=== PATIENT | male | born 1970 | race Caucasian/White ===

== ENCOUNTER 2018-05-19 10:11 | Inpatient (IN) | payer SELFPAY ==
[~2018-05-19] VITALS: Ht 188 cm; Wt 172.6 kg
[2018-05-19 11:06] LABS: Basophils # (auto) 0 uL; Basophils % (auto) 0.3 % (0.0-2.0); Eosinophils # (auto) 0 uL; Eosinophils % (auto) 0.2 % (0.0-7.0); Hematocrit 46.4 % (41.0-53.0); Lymphocytes # (auto) 0.8 uL; Lymphocytes % (auto) 4.8 % (10.0-50.0); Mean Corpuscular Hemoglobin 27.4 pg (28.0-32.0); Mean Corpuscular Hgb Conc. 32.4 g/dL (32.0-36.0); Mean Corpuscular Volume 84.5 fL (80.0-100.0); Monocytes # (auto) 0.7 uL; Neutrophils # (auto) 15.5 uL; Neutrophils % (auto) 90.7 % (37.0-80.0); Platelet Count (auto) 281 10^3/uL (140-450); Red Blood Cells 5.49 10^6/uL (4.5-5.90); Red Cell Distribution Width 15.2 % (11.8-14.3); White Blood Cell 17.1 10^3/uL (4.4-10.8)
[2018-05-19] MEDS ORDERED: SODIUM CHLORIDE 0.9% 1,000 ML IV ONE (11:16)
[2018-05-19 11:28] LABS: Alanine Aminotransferase 24 U/L (16-61); Albumin 3.8 g/dL (3.4-5.0); Alkaline Phosphatase 86 U/L (45-117); Anion Gap 6 (5-15); Aspartate Aminotransferase 10 U/L (15-37); BUN/Creatinine Ratio 13.3; Bilirubin, Total 0.7 mg/dL (0.2-1.0); Blood Urea Nitrogen 14 mg/dL (7-18); Calcium 8.5 mg/dL (8.5-10.1); Carbon Dioxide 25 mmol/L (21-32); Chloride 104 mmol/L (98-107); GFR African American 97 mL/min; GFR Non-African American 80 mL/min; Glucose 171 mg/dL (74-106); Potassium 3.9 mmol/L (3.5-5.1); Sodium 135 mmol/L (136-145)
[2018-05-19] MEDS ORDERED: CLINDAMYCIN 900MG IV 50 ML IV ONE (11:30)
[2018-05-19] MEDS ORDERED: PIPERACILLIN-TAZOB 3.375GM 100 ML IV ONE (11:30)
[2018-05-19 11:36] LABS: Urine Bacteria NONE SEEN /hpf (None Seen); Urine Blood Negative /uL (Negative); Urine WBC 1 /hpf (0 - 3)
[2018-05-19] MEDS ORDERED: DEXTROSE (50%) 50ML SYRG IV PRN (13:45)
[2018-05-19] MEDS ORDERED: HYDROcodone-ACET 5/325MG TAB PO PRN (13:45)
[2018-05-19] MEDS ORDERED: LORazepam 0.5 MG TAB PO PRN (13:45)
[2018-05-19] MEDS ORDERED: LACTULOSE 20Gm/30ML SOLN PO PRN (13:45)
[2018-05-19] MEDS ORDERED: MORPHINE SULF INJ 2 MG/ML SYRINGE 1ML IV PRN (13:45)
[2018-05-19] MEDS ORDERED: TEMAZEPAM 15 MG CAP PO PRN (13:45)
[2018-05-19] MEDS ORDERED: PROMETHAZINE HCL 25 MG/ML 1ML IV PRN (13:45)
[2018-05-19] MEDS ORDERED: NITROGLYCERIN 0.4 MG SL TAB SL PRN (13:45)
[2018-05-19] MEDS ORDERED: MORPHINE SULFATE 4 MG/ML SYR/VIAL IV PRN (13:45)
[2018-05-19] MEDS ORDERED: ACETAMINOPHEN 500 MG TAB PO PRN (13:45)
[2018-05-19] MEDS: CLINDAMYCIN 600MG IV 50 ML IV SCH ×2 (14:00→21:57)
[2018-05-19] MEDS: SODIUM CHLORIDE 0.9% 1,000 ML IV SCH ×2 (14:26→23:36)
[2018-05-19] MEDS ORDERED: FURO40TA PO (16:18)
[2018-05-19] MEDS ORDERED: METO-158 PO (16:18)
[2018-05-19] MEDS ORDERED: LISI30TA36 PO (16:18)
[2018-05-19 17:00] VITALS: BP 120/54
[2018-05-19] MEDS: ACCU-CHEK COMFORT CURVE STRIP VI SCH ×2 (18:00→23:36)
[2018-05-19] MEDS: InsuLIN REG 1unit/0.01ml Soln (100units/ml) SC SCH ×2 (18:00→23:37)
[2018-05-19 22:00] VITALS: BP 130/71
[2018-05-20] MEDS: SODIUM CHLORIDE 0.9% 1,000 ML IV SCH (02:43)
[2018-05-20 05:00] VITALS: BP 107/55
[2018-05-20] MEDS: CLINDAMYCIN 600MG IV 50 ML IV SCH ×3 (05:20→21:48)
[2018-05-20] MEDS: ACCU-CHEK COMFORT CURVE STRIP VI SCH ×2 (05:22→12:00)
[2018-05-20] MEDS: InsuLIN REG 1unit/0.01ml Soln (100units/ml) SC SCH ×2 (05:22→12:00)
[2018-05-20 07:02] LABS: Basophils # (auto) 0.1 uL; Basophils % (auto) 0.6 % (0.0-2.0); Eosinophils # (auto) 0 uL; Eosinophils % (auto) 0.4 % (0.0-7.0); Hematocrit 40.1 % (41.0-53.0); Hemoglobin 13.5 g/dL (13.5-17.5); Lymphocytes # (auto) 1.5 uL; Lymphocytes % (auto) 16.5 % (10.0-50.0); Mean Corpuscular Hgb Conc. 33.7 g/dL (32.0-36.0); Monocytes # (auto) 0.7 uL; Monocytes % (auto) 7.8 % (0.0-12.0); Neutrophils # (auto) 6.9 uL; Neutrophils % (auto) 74.7 % (37.0-80.0); Platelet Count (auto) 204 10^3/uL (140-450); Red Blood Cells 4.83 10^6/uL (4.5-5.90); Red Cell Distribution Width 15.3 % (11.8-14.3); White Blood Cell 9.2 10^3/uL (4.4-10.8)
[2018-05-20 07:15] LABS: Albumin 3.1 g/dL (3.4-5.0); Potassium 3.3 mmol/L (3.5-5.1)
[2018-05-20 07:18] LABS: BUN/Creatinine Ratio 14.7
[2018-05-20 07:20] LABS: Bilirubin, Total 0.7 mg/dL (0.2-1.0); Total Protein 6.8 g/dL (6.4-8.2)
[2018-05-20 08:49] VITALS: BP 117/66
[2018-05-20] MEDS: cefTRIAXone 1GM/10ml IVPUSH 10 ML IV SCH (12:05)
[2018-05-20] MEDS: ENOXAPARIN SOD 40 MG/0.4 ML SYRINGE SC SCH (12:05)
[2018-05-20] MEDS ORDERED: FUROSEMIDE 40 MG TAB PO ONE (12:30)
[2018-05-20] MEDS ORDERED: POTASSIUM CHL 20 Meq TABLET PO ONE (12:30)
[2018-05-20] MEDS ORDERED: LISINOPRIL 20 MG TAB PO ONE (12:30)
[2018-05-20] MEDS ORDERED: ENOXAPARIN SOD 40 MG/0.4 ML SYRINGE SC ONE (12:30)
[2018-05-20] MEDS ORDERED: METOPROLOL TARTRATE 50 MG TAB PO ONE (12:30)
[2018-05-20 13:00] VITALS: BP 120/63
[2018-05-20 17:07] VITALS: BP 117/67
[2018-05-20] MEDS: MULTIPLE VITAMIN TAB PO SCH (18:10)
[2018-05-20] MEDS: METOPROLOL TARTRATE 50 MG TAB PO SCH (21:48)
[2018-05-20] MEDS: ASCORBIC ACID 500 MG TAB PO SCH (21:48)
[2018-05-20 22:03] VITALS: BP 128/58
[2018-05-21 05:00] VITALS: BP 116/68
[2018-05-21] MEDS: CLINDAMYCIN 600MG IV 50 ML IV SCH ×3 (05:23→22:49)
[2018-05-21 07:12] LABS: INR 0.97 (0.9-1.15); Partial Thromboplastin Time 27.2 sec (23.78-33.04); Prothrombin Time 10.4 sec (9.27-12.13)
[2018-05-21 07:21] LABS: BUN/Creatinine Ratio 16.4; Calcium 8.3 mg/dL (8.5-10.1); Potassium 3.6 mmol/L (3.5-5.1)
[2018-05-21 09:28] VITALS: BP 113/64
[2018-05-21] MEDS: FUROSEMIDE 40 MG TAB PO SCH (11:27)
[2018-05-21] MEDS: cefTRIAXone 1GM/10ml IVPUSH 10 ML IV SCH (11:27)
[2018-05-21] MEDS: POTASSIUM CHL 20 Meq TABLET PO SCH (11:27)
[2018-05-21] MEDS: METOPROLOL TARTRATE 50 MG TAB PO SCH ×2 (11:28→22:50)
[2018-05-21] MEDS: ASCORBIC ACID 500 MG TAB PO SCH ×2 (11:28→22:50)
[2018-05-21] MEDS: MULTIPLE VITAMIN TAB PO SCH (11:28)
[2018-05-21] MEDS: ENOXAPARIN SOD 40 MG/0.4 ML SYRINGE SC SCH (11:29)
[2018-05-21] MEDS: LISINOPRIL 20 MG TAB PO SCH (11:29)
[2018-05-21 13:00] VITALS: BP 99/39
[2018-05-21 17:06] VITALS: BP 99/68
[2018-05-21 22:00] VITALS: BP 124/58
[2018-05-22 05:00] VITALS: BP 92/49
[2018-05-22] MEDS: CLINDAMYCIN 600MG IV 50 ML IV SCH ×2 (05:58→13:23)
[2018-05-22 07:32] LABS: BUN/Creatinine Ratio 17.2; Calcium 8.5 mg/dL (8.5-10.1); Potassium 3.9 mmol/L (3.5-5.1)
[2018-05-22 09:00] VITALS: BP 121/64
[2018-05-22] MEDS ORDERED: LIDOCAINE 1% HCL (LOCAL ANESTH.) INJ 20ML MDV ID ONE (09:15)
[2018-05-22] MEDS: METOPROLOL TARTRATE 50 MG TAB PO SCH ×2 (10:00→22:14)
[2018-05-22] MEDS ORDERED: MORPHINE SULF INJ 2 MG/ML SYRINGE 1ML IV PRN (10:00)
[2018-05-22] MEDS ORDERED: DAKINS QUARTER STR 0.125% (NaHypochlorite) 473 ML TOPICAL SOL TOP SCH (10:00)
[2018-05-22] MEDS ORDERED: SILVER SULFADIAZINE 1 % TOPICAL CREAM 50GM TOP SCH (10:00)
[2018-05-22] MEDS: ENOXAPARIN SOD 40 MG/0.4 ML SYRINGE SC SCH ×2 (10:00→22:14)
[2018-05-22] MEDS: POTASSIUM CHL 20 Meq TABLET PO SCH (10:17)
[2018-05-22] MEDS: MULTIPLE VITAMIN TAB PO SCH (10:18)
[2018-05-22] MEDS: FUROSEMIDE 40 MG TAB PO SCH (10:18)
[2018-05-22] MEDS: LISINOPRIL 20 MG TAB PO SCH (10:18)
[2018-05-22] MEDS: ASCORBIC ACID 500 MG TAB PO SCH ×2 (10:18→22:14)
[2018-05-22] MEDS: cefTRIAXone 1GM/10ml IVPUSH 10 ML IV SCH (10:30)
[2018-05-22 13:00] VITALS: BP 155/96
[2018-05-22] MEDS ORDERED: HYDROcodone-ACET 5/325MG TAB PO PRN (14:45)
[2018-05-22 17:00] VITALS: BP 105/42
[2018-05-23 05:00] VITALS: BP 106/34
[2018-05-23] MEDS ORDERED: AMPICILLIN INJ 1 GM in SODIUM CHL 0.9% 50 ML IV SCH (06:00)
[2018-05-23 09:00] VITALS: BP 109/80
[2018-05-23] MEDS ORDERED: SILVER SULFADIAZINE 1 % TOPICAL CREAM 50GM TOP SCH (10:00)
[2018-05-23] MEDS ORDERED: DAKINS QUARTER STR 0.125% (NaHypochlorite) 473 ML TOPICAL SOL TOP SCH (10:00)
[2018-05-23] MEDS: LISINOPRIL 20 MG TAB PO SCH (11:11)
[2018-05-23] MEDS: POTASSIUM CHL 20 Meq TABLET PO SCH (11:12)
[2018-05-23] MEDS: MULTIPLE VITAMIN TAB PO SCH (11:12)
[2018-05-23] MEDS: ASCORBIC ACID 500 MG TAB PO SCH (11:13)
[2018-05-23] MEDS: METOPROLOL TARTRATE 50 MG TAB PO SCH (11:13)
[2018-05-23] MEDS: FUROSEMIDE 40 MG TAB PO SCH (11:13)
[2018-05-23] MEDS: ENOXAPARIN SOD 40 MG/0.4 ML SYRINGE SC SCH (11:14)
[2018-05-23 13:00] VITALS: BP 143/77
[2018-05-23] MEDS ORDERED: ASCO500T11 PO (13:19)
[2018-05-23] MEDS ORDERED: AMPI500C8 PO (13:19)
[2018-05-23] MEDS ORDERED: ASPI81CH43 PO (13:19)
[2018-05-23] MEDS ORDERED: AMPICILLIN 500 MG CAP PO ONE (13:30)
[2018-05-23 14:18] LABS: BUN/Creatinine Ratio 13.1; Calcium 8.6 mg/dL (8.5-10.1); Potassium 3.8 mmol/L (3.5-5.1)
[2018-05-24] MEDS ORDERED: AMOX-263 PO (16:36)
== END 2018-05-23 16:30 | disposition home or self-care (01) | DRG 854 ==
LOC: ER 10:11 → CENTRAL 10:12 → TELE-CENTR 15:12 → CENTRAL 05-20 13:10
PROVIDERS: ADMIT Internal Medicine; ATTEND Internal Medicine
PROC: 0LBV0ZZ Excision of Right Foot Tendon, Open Approach (ICD-10-PCS; principal; 2018-05-22)
DX: A41.9 Sepsis, unspecified organism (principal); M86.8X7 Other osteomyelitis, ankle and foot; L03.115 Cellulitis of right lower limb; Z68.42 Body mass index [BMI] 45.0-49.9, adult; E11.621 Type 2 diabetes mellitus with foot ulcer; E11.65 Type 2 diabetes mellitus with hyperglycemia; E66.01 Morbid (severe) obesity due to excess calories; H66.91 Otitis media, unspecified, right ear; I10 Essential (primary) hypertension; L97.519 Non-pressure chronic ulcer of other part of right foot with unspecified severity; M19.90 Unspecified osteoarthritis, unspecified site; M77.30 Calcaneal spur, unspecified foot; Z83.3 Family history of diabetes mellitus
CPT/HCPCS: 36415; 71045; 73700; 80048; 80053; 81001; 82962; 83036; 84484; 85025; 85610; 85652; 85730; 87040; 87086; 87205; 93005; 93926; 96361; 96365; 96368; 97163; J0696; J2001; J2543; J3490